=== PATIENT | female | born 1990 | race Caucasian/White ===

== ENCOUNTER 2024-02-22 20:42 | Emergency (ER) | payer OTHER, SELFPAY ==
--- NOTE | ~2024-02-22 | XR_ITS ---
EXAMINATION: XR ANKLE, LEFT CLINICAL INFORMATION: Fall. Pain. COMPARISON: None available. TECHNIQUE: AP, lateral, and mortise views of the left ankle. FINDINGS: No fracture. Alignment is anatomic. No erosions. Joint spaces are maintained. Soft tissues are normal. XR/XR ankle LT min 3V IMPRESSION: No significant abnormality identified.
[2024-02-22 21:10] VITALS: BP 104/54; PULSE 87; RESP 20; TEMP 36.6; O2SAT 98; BMI 26.1
--- NOTE | 2024-02-23 00:09 | ED.LOWEXIN ---
HPI - Extremity Injury (Lower) General Chief Complaint: Extremity Injury, Lower Stated Complaint: fall/lt ankle Time Seen by Provider: 02/23/24 00:01 Source: patient Mode of arrival: ambulatory Limitations: no limitations History of Present Illness HPI Narrative: 34 yo female prior L ankle injury in past follows at [facility] - fell and everted her ankle at 6pm at home tonight hurts to walk and move can limp complaint: ankle injury Onset (ago): day(s) (6pm) Injury: Left: ankle Type of Injury: eversion Place: home Severity: moderate Relieving factors: immobilization Exacerbating factors: weight bearing, movement and palpation Context: fall Associated symptoms: snap/pop sensation and swelling Other symptoms: none Related Data Previous Rx's ?Medication ?Instructions ?Recorded cyclobenzaprine 10 mg tablet 10 mg PO TID PRN muscle spasm #20 02/23/24 tabs ibuprofen 600 mg tablet 600 mg PO Q6H PRN pain #30 tabs 02/23/24 Allergies Allergy/AdvReac Type Severity Reaction Status Date / Time Penicillins [PCN] Allergy Unknown Verified 02/22/24 21:13 Review of Systems Review of Systems: Constitutional : No Fever, No Chills ENT/Mouth : No Ear Pain, No Hoarseness, No sore throat Eyes: No Eye Pain, No Swelling, No Redness, No Foreign Body Cardiovascular : No Chest Pain, No SOB Respiratory : No Cough, No Dyspnea Gastrointestinal : No Nausea, No Vomiting, No Diarrhea, No abdominal Pain Genitourinary : No Dysuria, No Hematuria Musculoskeletal : positive joint pain, No Myalgias, pos Joint Swelling Skin : No Skin lacerations, No rash Neuro : No Weakness, No Numbness, No Loss of Consciousness, No Dizziness, No Headache All other systems reviewed and are negative COUNT INCLUDES THE [facility] Past Medical History Attestation statement: The following information was validated with the patient. Medical History Ankle sprain and strain Social History Social History (Updated 02/23/24 @ 00:17 by Stefani Villanueva DO) Patient Tobacco Use Status: Never used Tobacco Physical Exam Vital Signs: Vital Signs: Last Vital Signs Temp 98 F 02/22/24 21:10 Pulse 87 02/22/24 21:10 Resp 20 02/22/24 21:10 BP 104/54 L 02/22/24 21:10 Pulse Ox 98 02/22/24 21:10 O2 Del Method Room Air 02/22/24 21:10 BMI result Body Mass Index 26.1 Appearance: Alert. Oriented X3. No acute distress. Eyes: Pupils equal, round and reactive to light. ENT: Pharynx normal. Neck: Normal inspection. CVS: Pulses normal. Respiratory: No respiratory distress. Abdomen: atraumatic Skin: Skin warm and dry. Normal skin color. Extremities: L ankle ttp along joint line and deltoid ligament area distal NV intact, no prox fibula ttp Neuro: Oriented X 3. No motor deficit. No sensory deficit. Medical Decision Making Medical Decision Making MDM Narrative: 34 yo female with prior ligamentous injury to the left ankle here with eversion injury at this time no prox fibula ttp she is NV intact will obtain xrays and offer supportive care and crutches Differential Diagnosis Differential Diagnoses: The differential diagnosis associated with the presentation includes sprain, strain fracture Independent Interpretation I performed an independent interpretation of an: Plain X-Ray (no fx) Radiology Impression Discussion of test interpretation with radiology: I have reviewed the radiologist's reading. Prescription Management I considered prescription management with: Pain Medication and Other Procedures Orthopedic Splinting/Casting Injury #1: Side: left Lower Extremity Injury Location: ankle Lower Extremity Immobilizer: [place] wrap Other Orthopedic Equipment: crutches Discharge Plan Discharge Clinical Impression: Ankle sprain and strain Patient Disposition: Home, Self-Care Instructions: Ankle Sprain (ED), Crutch Instructions (ED) Additional Instructions: would use wrap and crutches for one week then toe touch weight bearing as tolerated on day 7 please follow up with [facility] as planned return for worsening pain swelling numbness or weakness Prescriptions: New cyclobenzaprine 10 mg tablet 10 mg PO TID PRN (Reason: muscle spasm) Qty: 20 0RF ibuprofen 600 mg tablet 600 mg PO Q6H PRN (Reason: pain) Qty: 30 0RF Stand Alone Forms: Work/School Release Print Language: Macanese
[2024-02-23 00:52] VITALS: BP 104/54; PULSE 87; RESP 20; TEMP 36.6; O2SAT 98
== END 2024-02-23 00:30 | disposition home or self-care (01) ==
PROVIDERS: Emergency Provider Emergency Medicine; PCP Nurse Practitioner Family
DX: S93.402A Sprain of unspecified ligament of left ankle, initial encounter (principal); S96.912A Strain of unspecified muscle and tendon at ankle and foot level, left foot, initial encounter; W19.XXXA Unspecified fall, initial encounter; Y93.9 Activity, unspecified; Y92.9 Unspecified place or not applicable; Y99.9 Unspecified external cause status; S99.912A Unspecified injury of left ankle, initial encounter
CPT/HCPCS: 73610; 99282; 99283